=== PATIENT | female | born 1990 | race Two or more races ===

== ENCOUNTER 2023-11-01 20:56 | Emergency (ER) | payer BC, SELFPAY ==
[2023-11-01 20:58] VITALS: BP 140/81
[2023-11-01 21:15] LABS: HCG, Urine Qualitative Screen Negative
[2023-11-01 21:26] LABS: % Basophils 0.4 % (0-2); % Eosinophils 2.8 % (0-6); % Immature Granulocytes 0.3 % (0-0.5); % Lymphocytes 47.3 % (20.5-51.1); % Monocytes 9.3 % (1.7-9.3); % Neutrophils 39.9 % (42.2-75.2); Absolute Eosinophils 0.2 10^3/uL (0-0.7); Absolute Lymphocytes 3.5 10^3/uL (1.2-3.4); Absolute Monocytes 0.7 10^3/uL (0.1-0.6); Hematocrit 37.7 % (37.0-47.0); Hemoglobin 13.2 g/dL (12.0-16.0); Mean Corpuscular Volume 68.4 fL (81.0-99.0); Mean Platelet Volume 11.3 fL (7.4-10.4); Nucleated Red Blood Cells % 0 %; Platelet Count 249 10^3/uL (130-400); Red Blood Cell Count 5.51 10^6/uL (4.20-5.40); Red Cell Dist. Width 16.2 % (11.5-14.5); White Blood Cell Count 7.4 10^3/uL (4.8-10.8)
[2023-11-01 21:26] LABS: Urine Albumin Negative (Neg - Trace); Urine Bilirubin Negative (Negative); Urine Character Clear (Clear); Urine Color Yellow; Urine Glucose Negative (Negative); Urine Ketone Negative (Negative); Urine Leukocyte Negative (Negative); Urine Nitrite Negative (Negative); Urine Occult Blood Negative (Negative); Urine Specific Gravity 1.005 (<1.030); Urine Urobilinogen Negative (Neg - 1+)
[2023-11-01 21:45] LABS: ALT (SGPT) 18 U/L (0-35); AST (SGOT) 21 U/L (14-36); Alkaline Phosphatase 45 U/L (38-126); Blood Urea Nitrogen 12 mg/dl (7-17); Calcium 10.3 mg/dl (8.4-10.2); Carbon Dioxide 25 mmol/L (22-30); Chloride 105 mmol/L (98-107); Glucose 96 mg/dl (70-99); Potassium 4.4 mmol/L (3.5-5.1); Sodium 142 mmol/L (135-145); Total Bilirubin 0.5 mg/dl (0.2-1.3); Total Protein 7.7 g/dl (6.3-8.2); eGFR > 60.00
[2023-11-01 22:00] VITALS: BP 120/84
[2023-11-01 22:09] LABS: TSH Reflex To Free T4 2.46 uIU/ml (0.47-4.68)
[2023-11-01 23:00] VITALS: BP 115/75
--- NOTE | 2023-11-01 23:47 | ED.GENMED ---
History of Present Illness
General
Chief Complaint: Heart Rate Problem
Source: patient
Exam Limitations: none
Time Seen by Provider: 11/01/23 22:27
History of Present Illness
History of Present Illness:
This is a 32 year old female that comes in with multiple complaints. States that she has had palpitations and chest tightness with fast heart rate. States that her heart rate has been going up on and off for the past 4 days. States that she has had
a sore throat for >2 weeks. states that she has a headache that goes across her forehead and that she has been under a lot of stress. States that she feels SOB. States that she has also had some nausea. Patient was seen at and told to come to
the ER. Denies any fever, chills, abd pain, vomiting, diarrhea, dizziness, urinary burning.
Past History
Past History
ED Past Medical History: Asthma and Hypercholesterolemia
ED Past Surgical History: None
Social History
Tobacco: Former smoker
Alcohol: Occasional
Personal:
Living: with family
Review of Systems
Review of Systems
All Other Systems: ROS reviewed and negative except as documented in HPI and ROS
Constitutional: Reports no symptoms; Denies fever or chills
EENT: Reports sore throat
Respiratory: Reports trouble breathing; Denies cough
Cardiac: Reports chest pain (tightness)
ABD/GI: Reports nausea; Denies abdominal pain, vomiting or diarrhea
: Reports no symptoms; Denies dysuria, frequency or urgency
Musculoskeletal: Reports no symptoms
Skin: Reports no symptoms
Neurological: Reports headache; Denies dizzy
Psychiatric: Reports no symptoms
Phy Exam
General Physical Exam
General Presentation: well appearing and no apparent distress
General age: appears stated age
General Skin: warm and dry
General Habitus: normal
General Mental: alert
General Hydration: appears well hydrated
ENT Exam
ENT Exam: TM's normal, pharynx normal (Negative for any redness or exudate) and neck supple
Eye Exam
Eye Exam: EOMI
Cardiovascular Exam
Cardiovascular Exam: regular rate/rhythm, no edema, no murmur and normal peripheral pulses
Pulmonary Exam
Pulmonary Exam: lungs clear, no respiratory distress, no rales, chest non tender, no crackles, no rhonchi, no wheezing and no cough
Gastrointestinal Exam
Gastrointestinal Exam: normal bowel sounds, non tender, soft, no organomegaly, no pulsatile mass and non distended
Musculoskeletal Exam
Musculoskeletal Exam: full ROM and no edema
Skin Exam
Skin Exam: normal color, warm/dry, no rash and no petechia
Psychiatric Exam
Psychiatric Exam: normal mood/affect
Course
Orders/Labs/Results
Orders:
Orders
11/01/23 21:03
Electrocardiogram (*1) Urgent
Reason for Study: Bradycardia / Tachycardia
EKG- Treatment ONCE
11/01/23 21:05
Test Result ONCE
11/01/23 21:08
HCG, Urine Qualitative Screen Urgent
Date Specimen was Collected: 11/01/23
Time Specimen was Collected: 21:05
Urinalysis Reflex To Culture Urgent
Date Specimen was Collected: 11/01/23
Time Specimen was Collected: 21:05
11/01/23 21:19
Complete Blood Count/With Diff Urgent
Comprehensive Metabolic Panel Urgent
TSH Reflex To Free T4 Urgent
11/01/23 23:50
COVID-19 Antigen Urgent
Source: Nasal Swab
D-Dimer Urgent
Rapid Strep Group A Urgent
AV Source: Throat/Pharynx
Specimen Description:
Date Specimen was Collected: 11/01/23
Time Specimen was Collected: 23:47
11/02/23 01:30
Troponin I Urgent
Abnormal Lab Results
11/01/23
21:19
RBC 5.51 H 10^6/uL
(4.20-5.40)
MCV 68.4 L fL
(81.0-99.0)
MCH 24.0 L pg
(27.0-31.0)
RDW 16.2 H %
(11.5-14.5)
MPV 11.3 H fL
(7.4-10.4)
Absolute Lymphs (auto) 3.5 H 10^3/uL
(1.2-3.4)
Absolute Monos (auto) 0.7 H 10^3/uL
(0.1-0.6)
Neutrophils % 39.9 L %
(42.2-75.2)
Calcium 10.3 H mg/dl
(8.4-10.2)
11/01/23 21:19
11/01/23 21:19
Slight anemia, TSH normal at 2.46, Urine negative for infection. HCG negative. D-dimer <0.27, Rapid strep negative, COVID negative. Troponin <0.012
Vital Signs
Initial and Last Documented VS:
Initial Vital Signs
Temp Pulse Resp BP Pulse Ox
98.6 F 80 18 140/81 100
11/01/23 20:58 11/01/23 20:58 11/01/23 20:58 11/01/23 20:58 11/01/23 20:58
Last Documented Vital Signs
Temp Pulse Resp BP Pulse Ox
98.6 F 77 17 112/61 99
11/01/23 20:58 11/02/23 01:00 11/02/23 01:00 11/02/23 01:00 11/02/23 01:00
MDM/Problems Addressed
Differential Diagnosis Includes:
COVID, Viral syndrome.
MDM/Problems Addressed:
This is a 32 year old female that comes in with Multiple complaints. States that she has increased heart rate with tightness, SOB, Sore throat for >2 weeks and a headache. States that she is under some stress.
will check labs, Chest x-ray, Rapid strep and COVID.
Back into see patient. Explained that her D-dimer is negative along with her rapid strep and COVID. This is most likely a viral syndrome and will have patient follow up with the family doctor. He may want patient to wear a Holter monitor for further
evaluation. Patient to return with any concerns.
Chronic conditions affecting care: Asthma
Acute Exacerbation and/or Progression of Chronic Illness:
NA
*Pulse Oximetry
Patient hypoxic: no
*EKG
Interpreted by ED Provider?: Yes
Heart Rate: 80
Rate: normal
Rhythm: sinus
[place]: normal axis
Interval: normal interval
QRS Pattern: normal QRS
Ischemia: no ischemia
*Bobcat Operator Interpretation
Rate: normal
Heart Rate: 87
Rhythm: sinus
*Critical Care Note
Total Time (30-74mins, 75-104mins- exclusive of procedures): Not Applicable
ED Attending Note
-
Portions of this chart may have been created with voice recognition software.� Occasional wrong word or��sound alike� substitutions may have occurred due to the inherent limitations of voice recognition software.
Discharge Plan
Departure
Patient Disposition: Home (Routine Discharge)
Date of Disposition: 11/02/23
Time of Disposition: 01:17
Patient with high blood pressure during this ER visit?: No
Condition: Good
Covid-19: Negative COVID-19
Discharge Problem:
SOB (shortness of breath), Tachycardia
Instructions: Tachycardia, Shortness of Breath, Adult ED, Chest Pain PCP Follow Up
Referrals:
Glynn Prince, DO [Family Provider] - Follow up in 2-3 days
Stand Alone Forms: Return to Work
Activity Restrictions/Additional Instructions:
As discussed, your blood work shows very slight anemia. Your Thyroid function is normal and your urine is negative for infection. Your D-dimer is normal, rapid strep is negative and you are negative for COVID. Please follow up with the family doctor
in the next 2-3 days as they may wish to have you wear a Holter Monitor for further evaluation of this fast heart rate. Your ECG is normal here. IF YOU HAVE INCREASED OR CHANGING PAIN, OR YOU HAVE ANY OTHER CONCERNS PLEASE RETURN TO THE EMERGENCY
ROOM.
Interventions
Interventions:
*Risk Screen - Suicide Last Done: 11/02/23 00:12
*General Assessment Last Done: 11/02/23 00:12
*Neglect/Abuse Screening Last Done: 11/01/23 20:58
ED- Fall Risk Assessment Last Done: 11/02/23 00:12
*ED COVID-19 Vaccine History Last Done: 11/02/23 00:12
*Nursing Disposition Last Done: 11/02/23 01:32
ED- Cardiac Assessment Last Done: 11/01/23 22:25
ED- Pulmonary Assessment Last Done: 11/01/23 22:25
Discharge Date and Time
Discharge Date/Time: 11/02/23 01:33
Print Language: WELSH
[2023-11-02] VITALS: BP 116/74
[2023-11-02 00:13] LABS: COVID-19 Antigen Negative (Negative)
[2023-11-02 00:18] LABS: D-Dimer < 0.27 ug/mlFEU (0.00-0.50)
[2023-11-02 01:00] VITALS: BP 112/61
[2023-11-02 02:01] LABS: Troponin I < 0.012 ng/ml
== END 2023-11-02 01:33 | disposition home or self-care (01) ==
LOC: EMR 20:56
PROVIDERS: Clinical Nurse Specialist Family Health; Emergency Medicine; EMERGENCY PHYSICIAN Emergency Medicine; FAMILY PHYSICIAN Internal Medicine
DX: R06.02 Shortness of breath (principal); R00.0 Tachycardia, unspecified; R51.9 Headache, unspecified; R07.89 Other chest pain; J02.9 Acute pharyngitis, unspecified; R11.0 Nausea; Z11.52 Encounter for screening for COVID-19; J45.909 Unspecified asthma, uncomplicated; E78.00 Pure hypercholesterolemia, unspecified; Z87.891 Personal history of nicotine dependence; Z88.1 Allergy status to other antibiotic agents; Z88.0 Allergy status to penicillin
CPT/HCPCS: 99283; 80053; 81003; 81025; 84443; 84484; 85025; 85379; 87070; 87811; 87880; 93005